=== PATIENT | male | born 1965 | race African-American/Black ===

== ENCOUNTER 2019-05-05 15:10 | Outpatient (CLI) | payer SELFPAY ==
--- NOTE | 2019-05-05 15:30 | XR_ITS ---
WS: [id number] Cervical spine, 3 views, 05/05/2019 Clinical Data: numbness in both arms Comparison: None. Findings: There is abundant osteoarthritic changes of the vertebral bodies C3-C7. There is disc space narrowing at all levels from C3-C4 through C6-C7. Patient's earrings obscure detail on the lateral v iew of C1 and C2. The odontoid is normal. No compression fractures are seen. No prevertebral soft tis wilder swelling is present. The lung apices and the soft tissues of the neck are not remarkable. XR/XR cervical spine 3V* [id number] Impression: 1. Moderate to severe osteoarthritic change from C3 through C7. 2. Degenerative disc disease from C3-C4 through C6-C7.
--- NOTE | 2019-05-05 15:30 | XR_ITS ---
WS: [id number] Left shoulder, 3 views, 05/05/2019 Clinical Data: left shoulder pain. Comparison: None. Findings: No fractures or dislocations are seen. The AC joint is normal. The adjacent left clavicle, left scapu la and ribs are normal. The soft tissues are unremarkable. XR/XR shoulder LT min 2V* [id number] Impression: Negative left shoulder.
== END 2019-05-05 15:11 | disposition home or self-care (01) ==
PROVIDERS: PCP Family Medicine; Visit Provider Family Medicine
DX: R20.0 Anesthesia of skin (principal); R20.2 Paresthesia of skin; M25.512 Pain in left shoulder; M50.323 Other cervical disc degeneration at C6-C7 level
CPT/HCPCS: 72040; 73030

== ENCOUNTER 2023-09-07 09:32 | Emergency (ER) | payer OTHER, SELFPAY ==
[2023-09-07 10:17] VITALS: BP 146/80; PULSE 62; RESP 16; TEMP 36.8; O2SAT 98; BMI 26.4
--- NOTE | 2023-09-07 10:57 | W.ED.NECK ---
HPI - Neck Pain/Injury General: Chief Complaint: Neck Pain/Injury Stated Complaint: head/neck pain work comp. Time Seen by Provider: 09/07/23 10:45 Source: patient Mode of arrival: ambulatory Limitations: no limitations History of Present Illness: Patient is a very pleasant 58-year-old male who presents to ED today with complaint of a head and neck injury that he sustained just prior to arrival while at work. 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 He states since then he has had a headache and feels like it jammed my neck as he is having pain towards the base of his neck. He has not noticed any numbness, tingling, loss of sensation, or weakness to his arms. No visual changes. No vomiting. No altered mental status. He does not complain of dizziness. MD complaint: neck pain and other (headache/injury) Onset (ago): hour(s) Place: work Severity: moderate Duration: constant Relieving factors: none Exacerbating factors: movement of neck Context: direct blow Associated symptoms: Reports no associated symptoms and headache(s); Denies dizziness Treatments prior to arrival: none Review of Systems Eyes: Denies: change in vision, blurry vision, photophobia, floaters or seeing flashes ENMT: Denies: tinnitus or disequilibrium GI: Denies: vomiting Musc: Reports: neck pain; Denies: back pain, extremity pain, extremity swelling, joint pain or joint swelling Neuro: Reports: headache(s); Denies: numbness in extremities, weakness in extremities, sensory changes or dizziness [facility] ED PFSH: Medical History Right shoulder injury No pertinent past medical history Surgical History H/O knee surgery Right - knee scope Left - scope times two Social History Smoking and tobacco/nicotine status: never used tobacco/nicotine Alcohol intake: current Alcohol intake frequency: 0-2 Drinks per Day Alcohol type: beer Substance/Drug Use: never Physical Exam Const: COMMON NORMALS: no acute distress, average body habitus, patient oriented x3, no limitations, healthy appearing, alert and well nourished GENERAL APPEARANCE: cooperative ORIENTATION/CONSCIOUSNESS: Yes awake, Yes oriented to person, Yes oriented to place and Yes oriented to time HENMT: COMMON NORMALS: normocephalic and atraumatic HEAD & SCALP: normal to inspection, normocephalic, atraumatic and other (tenderness top of scalp without hematoma/signs of trauma) FACE & SINUS: normal facial exam Eye: GENERAL EYE: appearance normal, both eyes and all related structures and normal light reflex DIRECT OPHTHALMOSCOPY: Yes normal light reflex Neck/C-Spine: GENERAL: Yes normal visual inspection CERVICAL SPINE: Yes cervical ROM normal, Yes Cervical spine tenderness (lower c spine), No step off deformity and No Paracervical spasm Back/Pelvis: COMMON NORMALS: thoracic and lumbar spine normal to inspection Extremity: COMMON NORMALS: normal to inspection GENERAL: Yes normal exam except as noted Neuro: NEY COMA SCALE: document GCS findings Ney coma scale eye opening: Spontaneous Ney coma scale verbal response: Orientated Round O coma scale motor response: Obey commands Ney coma scale total score: 15 COMMON NORMALS: patient oriented x3, CN's II-XII intact bilaterally, moves all extremities, no focal motor deficits and no sensory deficits noted SENSORIUM/ORIENTATION: Yes alert, Yes oriented to person, Yes oriented to place and Yes oriented to time Course Vital Signs: Vital signs: Vital Signs Temperature 98.2 F 09/07/23 10:17 Pulse Rate 62 09/07/23 11:02 Respiratory Rate 16 09/07/23 11:02 Blood Pressure 133/80 09/07/23 11:02 Pulse Oximetry 98 09/07/23 11:02 Oxygen Delivery Me thod Room Air 09/07/23 11:02 MDM - Neck Pain/Injury Medical Decision Making CT head/cervical spine negative. Will have him follow up through Worker's Comp. Medical Records I reviewed the patient's medical records. Lab Data Radiology Impressions Cervical Spine CT 09/07/23 11:01 IMPRESSION: 1. No acute cervical spine fracture. 2. Severe degenerative disc disease and spondylosis from C3-C7. 3. Central and foraminal stenoses as above. Head CT 09/07/23 11:01 IMPRESSION: Negative head CT. All radiology interpretation(s) finalized by discharge Discharge Plan Discharge Patient Disposition: Home Clinical Impression: Minor closed head injury, Acute neck pain Condition: Stable Prescriptions: No Action No Known Home Medications Discharge Orders: Discharge ED (Routine); Ordered 09/07/23 Ordered By: Kayy Chong Referrals: Rosette Whyte DO [Primary Care Provider] - Activity Restrictions/Additional Instructions: As we discussed please follow-up with Worker's Comp. as directed through your employer/human resource department. Coding Level of Care Code ED [employer] for [employer] [place]
--- NOTE | 2023-09-07 11:01 | CT_ITS ---
WS: [id number] CT CERVICAL SPINE HISTORY: injury TECHNIQUE: Contiguous 2.0 mm axial imaging performed through the entire cervical spine. Sagittal and coronal reformats also performed. All CT scans at [facility] use at least one of these dose o ptimization techniques: automated exposure control; mA and/or kV adjustment per patient size (include s targeted exams where dose is matched to clinical indication); or iterative reconstruction. DLP: 1270.04 mGy.cm COMPARISON: None available. Straightening of the normal cervical lordosis. Severe degenerative disc disease and spondylosis from C3-C7. Disc spaces are narrowed. Moderate osteophytes encroaching upon the central cervical canal. Er osions involving the endplates of C5, C6 and C7. Lateral masses are aligned. The odontoid is intact. C2-C3: Normal. C3-C4: Osteophytic ridging encroaching upon the ventral thecal sac. Mild facet arthritis. Moderate ce ntral with moderate to severe foraminal stenosis. C4-C5: Osteophytic ridging encroaching upon the ventral thecal sac. Moderate central and bilateral fo raminal stenosis. C5-C6: Osteophytic ridging. Mild central and RIGHT foraminal stenosis. Moderate LEFT foraminal stenos is. C6-C7: Mild osteophytic ridging. Moderate LEFT and mild RIGHT foraminal stenosis. C7-T1: Normal. Paravertebral soft tissues are negative Lung apices are clear. CT/CT cervical spin wo con* [id number] IMPRESSION: 1. No acute cervical spine fracture. 2. Severe degenerative disc disease and spondylosis from C3-C7. 3. Central and foraminal stenoses as above.
--- NOTE | 2023-09-07 11:01 | CT_ITS ---
WS: [id number] CT HEAD NONCONTRAST HISTORY: trauma TECHNIQUE: Contiguous axial imaging performed through the brain in 2.5 mm imaging. Bone and soft tiss ue windows. Sagittal and coronal reformats reviewed. All CT scans at [facility] use at least one of these dose optimization techniques: automated exposure control; mA and/or kV adjustment per pa tient size (includes targeted exams where dose is matched to clinical indication); or iterative recon struction. DLP: 1270.04 mGy.cm COMPARISON: None available. No acute intracranial hemorrhage, midline shift or mass effect. No atrophy or prior infarcts or herniation. Ventricles: Normal size with no hydrocephalus. No inferior displacement of the cerebellar tonsils. Paranasal sinuses: As visualized are clear. Mastoid air cells: Well pneumatized. Calvarium and scalp: Skull is intact with no soft tissue edema or swelling. CT/CT head wo con* [id number] IMPRESSION: Negative head CT.
[2023-09-07 11:02] VITALS: BP 133/80; PULSE 62; RESP 16; O2SAT 98
[2023-09-07] MEDS: ibuprofen 800 mg tablet PO (11:05)
[2023-09-07 13:07] VITALS: BP 147/79; PULSE 66; RESP 16; O2SAT 99
== END 2023-09-07 13:11 | disposition home or self-care (01) ==
PROVIDERS: Emergency Provider Physician Assistant; PCP Family Medicine
DX: S09.8XXA Other specified injuries of head, initial encounter (principal); M54.2 Cervicalgia; W20.8XXA Other cause of strike by thrown, projected or falling object, initial encounter; Y99.0 Civilian activity done for income or pay
CPT/HCPCS: 70450; 72125; 99284

== ENCOUNTER 2023-09-30 07:48 | Day surgery (SDC) | payer OTHER, SELFPAY ==
[2023-09-30 08:06] VITALS: BP 124/93; PULSE 63; RESP 16; TEMP 36.4; O2SAT 98; BMI 26.2
[2023-09-30] MEDS: sodium chloride 0.9% 1,000 ML 30 ML IV (08:14)
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
--- NOTE | 2023-09-30 08:52 | W.PM.OPSFHP ---
Same Day Surgery H&P Indication for Procedure/HPI DATE OF PROCEDURE: September 30, 2023 CHIEF COMPLAINT/INDICATIONFOR SURGICAL PROCEDURE: need for screening colonoscopy PREOP DIAGNOSIS: Screening PLANNED PROCEDURE: Operation Date: 09/30/23 09:00 Proposed Procedures p Colonoscopy [id number], G0121, Z12.11(Not Applicable) - Keven Carreon MD Medications/Allergies* Home Medications Medication Instructions Recorded Confirmed Type No Known Home Medications 07/19/23 09/30/23 History Allergies/Adverse Reactions Allergy/AdvReac Type Severity Reaction Status Date / Time No Known Allergies Allergy Verified 09/30/23 08:05 Current Medications: Generic Name Dose Route Start Last Admin Trade Name Freq PRN Reason Stop Dose Admin Sodium Chloride 1,000 mls @ 30 mls/hr 09/30/23 08:00 09/30/23 08:14 Sodium Chloride 0.9% IV 30 mls/hr .Q24H FAREED Administration Pertinent History/Comorbid Conditions* Medical History (Updated 09/15/23 @ 00:01 by [facility]) Right shoulder injury No pertinent past medical history Surgical History (Updated 05/05/19 @ 13:06 by Rosette Whyte DO) H/O knee surgery Right - knee scope Left - scope times two Social History Smoking and tobacco/nicotine status: never used tobacco/nicotine Alcohol intake: current Alcohol intake frequency: 0-2 Drinks per Day Alcohol type: beer Substance/Drug Use: never Pertinent Exam Findings alert Recommendations Surgery/Procedure today Coding Level of Care Code Acute Code for More F[employer]
[2023-09-30 10:09] VITALS: BP 127/92; PULSE 65; RESP 18; TEMP 36.3; O2SAT 98
[2023-09-30 10:21] VITALS: BP 156/99; PULSE 60; RESP 18; O2SAT 99
--- NOTE | 2023-09-30 10:35 | ANE.PACU2 ---
Inpatient post-anesthesia follow up: Airway intact: Yes Vital signs: Temperature 97.4 F Pulse Rate 60 Respiratory Rate 18 Blood Pressure 156/99 Pulse Oximetry 99 Oxygen Delivery Me thod Room Air Oxygen Flow Rate Fraction of Inspir ed Oxygen Hydration adequate: Yes Nausea and vomiting: No Pain level: 1 Mental status: Baseline
== END 2023-09-30 10:35 | disposition home or self-care (01) ==
PROVIDERS: PCP Family Medicine; Visit Provider Surgery
PROC: 0DJD8ZZ Inspection of Lower Intestinal Tract, Via Natural or Artificial Opening Endoscopic (ICD-10-PCS; CPT 45378; principal; 2023-09-30 09:00)
DX: Z12.11 Encounter for screening for malignant neoplasm of colon (principal); D12.8 Benign neoplasm of rectum; E78.5 Hyperlipidemia, unspecified
CPT/HCPCS: 45380; 88305; J2704; J7030